=== PATIENT | female | born 1940 | race Caucasian/White ===

== ENCOUNTER 2017-03-08 05:52 | Day surgery (SDC) | payer MEDICARE, OTHER ==
--- NOTE | ~2017-03-08 | EGD ---
EGD REPORT [facility] [address] [place]. [address] NAME: SUSY SNACHEZ : 36 STATUS : REG [facility]#: [id number] AGE: 76 ADM/REG DATE : 03/08/17 MR#: [id number] REPORT SERV DATE: 03/08/17 DICTATED BY: ROD AGUILERA DATE: 03/08/17 REPORT STATUS : Draft [facility]ANS[facility]IBED BY: [facility] DATE: 03/08/17 End[facility] Center Patient Name: Susy Sanchez Date of : 1940 Attending MD: ROD AGUILERA MD Procedure Date No Time: 03/08/2017 Procedure: Upper GI endoscopy Indications: Follow-up of acute gastric ulcer; Tanner lesions. Pantoprazole 40mg bid. No further anemia. Patient Profile: Informed consent was obtained from the patient by me prior to the procedure. Risks, benefits, and alternatives were discussed including the risk of bleeding, perforation, infection, reaction to medicine, missed lesion, and cardiopulmonary complications. Referring MD: Sharyn DAWN Medicines: Monitored Anesthesia Care Complications: No immediate complications. Procedure: Pre-Anesthesia Assessment: - ASA Grade Assessment: II - A patient with mild systemic disease. After obtaining informed consent, the endoscope was passed under direct vision. Throughout the procedure, the patient's blood pressure, pulse, and oxygen saturations were monitored continuously. The GIF [id number] was introduced through the mouth, and advanced to the second part of duodenum. The endoscope was withdrawn with careful examination all mucosal surfaces including retroflexion stomach. The upper GI endoscopy was accomplished without difficulty. The patient tolerated the procedure well. Findings: The first part of the duodenum and 2nd part of the duodenum were normal. Biopsies were taken with a cold forceps for histology. One 5mm erosion duodenum at c-sweep, benign. The entire examined stomach was normal. A 7 cm hiatus hernia was present. No Tanner lesions. The examined esophagus was normal. The esophagus and gastroesophageal junction were examined with white light. There was no visual evidence of Banegas's esophagus. Impression: - Normal first part of the duodenum and 2nd part of the duodenum. Biopsied. - Normal stomach. - Hiatus hernia. EGD REPORT [address] [address] NAME: SUSY SANCHEZ : [birth year] STATUS : REG [facility] [place] PAT#: [id number] AGE: 76 ADM/REG DATE : 03/08/17 MR#: [id number] REPORT SERV DATE: 03/08/17 DICTATED BY: ROD AGUILERA DATE: 03/08/17 REPORT STATUS : Draft TRANSCRIBED BY: [employer] DATE: 03/08/17 - Normal esophagus. - There is no endoscopic evidence of Banegas's esophagus. Recommendation: - Patient has a contact number available for emergencies. The signs and symptoms of potential delayed complications were discussed with the patient. Return to normal activities tomorrow. Written discharge instructions were provided to the patient. - Regular diet. - Continue present medications. - Await pathology results. - Change Pantoprazole to Nexium OTC 20mg bid. - Avoid NSAID's. - F/u office if any more anemia. Procedure Code(s): --- Professional --- 94440, Esophagogastroduodenoscopy, flexible, transoral; with biopsy, single or multiple Diagnosis Code(s): --- Professional --- K44.9, Diaphragmatic hernia without obstruction or gangrene K25.3, Acute gastric ulcer without hemorrhage or perforation CPT copyright 2013 [employer]. All rights reserved. The codes documented in this report are preliminary and upon sales development director review may be revised to meet current compliance requirements. ROD AGUILERA MD 03/08/2017 8:02 AM This report has been signed electronically. Number of Addenda: 0 Note Initiated On: 03/08/2017 7:45 AM Scope Withdrawal Time 0 hours 0 minutes 0 seconds [address] [place] [address]
[~2017-03-08 05:52] MED LIST: AMB10 PO; C5; CYANO1000T PO; FISH OIL1200 MG PO; IRON; LEXAPRO20 PO; MAG-DELAY PO; MAGNESIUM POWDER; MAX25 PO; MIRAPEX1 MG PO; MIRAPEX5 PO; NEXIUM40 PO; NORCO1 TA1 PO; OXYCOD PO; PRILO PO; PRIN20 PO; PROLOP100 PO; PROTONIX PO; TRAZ50 PO; ZOCOR40 PO
== END 2017-03-08 23:59 | disposition home or self-care (01) ==
LOC: DMU 05:52
PROVIDERS: Internal Medicine Gastroenterology
PROC: 0DB98ZX Excision of Duodenum, Via Natural or Artificial Opening Endoscopic, Diagnostic (ICD-10-PCS; principal; 2017-03-08 07:30)
DX: K44.9 Diaphragmatic hernia without obstruction or gangrene (principal); I10 Essential (primary) hypertension; E78.00 Pure hypercholesterolemia, unspecified; K21.9 Gastro-esophageal reflux disease without esophagitis; D64.9 Anemia, unspecified; F32.9 Major depressive disorder, single episode, unspecified; G25.81 Restless legs syndrome; H33.20 Serous retinal detachment, unspecified eye; M19.90 Unspecified osteoarthritis, unspecified site; Z88.0 Allergy status to penicillin; Z85.3 Personal history of malignant neoplasm of breast; Z96.1 Presence of intraocular lens; Z96.641 Presence of right artificial hip joint; Z90.89 Acquired absence of other organs; Z90.49 Acquired absence of other specified parts of digestive tract; Z90.12 Acquired absence of left breast and nipple; Z98.41 Cataract extraction status, right eye; Z98.42 Cataract extraction status, left eye; Z98.890 Other specified postprocedural states; Z79.899 Other long term (current) drug therapy
CPT/HCPCS: 88305